=== PATIENT | female | born 1995 | race Caucasian/White ===

== ENCOUNTER 2021-03-30 18:33 | Observation (INO) | payer OTHER ==
[~2021-03-30] VITALS: Ht 165.1 cm; Wt 70.0 kg
--- NOTE | 2021-03-30 18:42 | NUR ---
PATIENT ARRIVES WITH DANIE FROM HOME WITH SI: WAS GOING TO OD ON LITHIUM. MEDICS BROUGHT LITHIUM AND ALL ARE PRESENT AND ACCOUNTED FOR. PATIENT CALLED EMS ON HER OWN AND CAME WILLINGLY.
--- NOTE | 2021-03-30 19:05 | NUR ---
RECEIVED REPORT FROM [facility] PT'S BELONGINGS REMOVED AND PLACED IN SECURE LOCKER. [facility] G[facility]
[2021-03-30 19:44] LABS: AMPHETAMINE SCREEN, URINE Negative (Negative); BARBITURATE SCREEN, URINE Negative (Negative); BENZODIAZEPINE SCREEN, URINE Negative (Negative); CANNABINOID SCREEN, URINE Positive (Negative); COCAINE SCREEN, URINE Negative (Negative); METHADONE SCREEN, URINE Negative (Negative); OPIATE SCREEN, URINE Negative (Negative)
[2021-03-30 19:55] LABS: BASOPHILS % (AUTO) 1 % (0-1); EOSINOPHILS % (AUTO) 0 % (1-7); LYMPHOCYTES % (AUTO) 15 % (22-44); MEAN CORPUSCULAR HEMOGLOBIN 29.8 pg (27.0-34.8); MEAN CORPUSCULAR HGB CONC 34.4 g/dL (32.4-35.8); MEAN PLATELET VOLUME 8.8 fL (7.4-10.4); MONOCYTES % (AUTO) 7 % (2-9); NEUTROPHILS % (AUTO) 77 % (42-75); PLATELET COUNT 312 x10^3/uL (130-400); RED BLOOD COUNT 5.09 x10^6/uL (3.82-5.3); RED CELL DISTRIBUTION WIDTH 13.2 % (9.6-15.2)
--- NOTE | 2021-03-30 19:56 | NUR ---
PT PLACED ON CONTINUOUS PULSE OX, SITTER IS AWARE THAT MONITOR IS IN ROOM.
[2021-03-30 20:04] LABS: ANION GAP 5 mmol/L (5-15); CALCIUM 8.6 mg/dL (8.5-10.1); CHLORIDE 109 mmol/L (98-107)
--- NOTE | 2021-03-30 20:05 | NUR ---
PT REMOVED FROM CONTINUOUS PULSE OX PER ERP. PT RESTING ON GURNEY, DENIES NEEDS AT THIS TIME, SITTER AT BEDSIDED, ROOM SECURED
[2021-03-30 20:10] LABS: ALANINE AMINOTRANSFERASE 16 U/L (12-78); ALKALINE PHOSPHATASE 55 U/L (45-117); CREATININE 0.86 mg/dL (0.55-1.02); SALICYLATE LEVEL < 1.7 mg/dL (2.8-20.0)
--- NOTE | 2021-03-30 20:40 | NUR ---
PT TRANSFERED FROM [facility] TO HOSPITAL BED. PT RESTING COMFORTABLY, DENIES NEEDS AT THIS TIME.
--- NOTE | 2021-03-30 21:30 | NUR ---
PT RESTING ON BED, DENIES NEEDS AT THIS TIME, SITTER AT BEDSIDE, ROOM SECURED
--- NOTE | 2021-03-30 22:15 | NUR ---
PT RESTING ON BED, DENIES NEEDS AT THIS TIME, SITTER AT BEDSIDE, ROOM SECURED
--- NOTE | 2021-03-30 23:17 | NUR ---
PT RESTING IN BED, DENIES NEEDS AT THIS TIME.
--- NOTE | 2021-03-30 23:18 | NUR ---
SITTER AT BEDSIDE, ROOM SECURED
--- NOTE | 2021-03-31 00:05 | NUR ---
PT RESTING ON BED, DENIES NEEDS AT THIS TIME, SITTER AT BEDSIDE, ROOM SECURED
--- NOTE | 2021-03-31 01:05 | NUR ---
PT RESTING ON BED, DENIES NEEDS AT THIS TIME, SITTER AT BEDSIDE, ROOM SECURED
--- NOTE | 2021-03-31 02:25 | NUR ---
PT RESTING ON BED, DENIES NEEDS AT THIS TIME, SITTER AT BEDSIDE, ROOM SECURED
--- NOTE | 2021-03-31 03:00 | NUR ---
PT RESTING IN BED, DENIES NEEDS AT THIS TIME, SITTER BY BEDSIDE, ROOM SECURED
--- NOTE | 2021-03-31 04:30 | NUR ---
PT RESTING IN BED, DENIES NEEDS AT THIS TIME, SITTER BY BEDSIDE, ROOM SECURED
--- NOTE | 2021-03-31 05:29 | NUR ---
TP RN: EARLIER THIS AM PACKET WAS FAXED TO [facility] WITH CONFIRMATION FAX RECEIVED.
--- NOTE | 2021-03-31 06:17 | NUR ---
PT RESTING ON BED, DENIES NEEDS AT THIS TIME, SITTER AT BEDSIDE, ROOM SECURED
--- NOTE | 2021-03-31 09:08 | NUR ---
PT BREAKFAST DELIVERED. VSS. SUICIDE AND PHYSICAL REASSESSMENT COMPLETED. PT ROOM SECURED. SITTER IN LINE OF SIGHT. ALL NEEDS MET AT THIS TIME.
--- NOTE | 2021-03-31 13:28 | NUR ---
REPORT FROM MIGUEL BAY, ASSUME CARE OF PT AT THIS TIME. PT RESTING QUIETLY IN ROOM, NAD. SITTER AT DOORWAY.
--- NOTE | 2021-03-31 14:30 | NUR ---
ED DIET TRAY PROVIDED. PT REQUESTING SHOWER, RV SERVICER TO ASSIST WITH SHOWER WHEN PT FINISHED WITH MEAL. SITTER AT DOORWAY. PT PLEASANT AND COOPERATIVE.
--- NOTE | 2021-03-31 14:54 | NUR ---
PT TO SHOWER WITH TANK BUILDER SUPERVISOR TO ASSIST.
--- NOTE | 2021-03-31 16:00 | NUR ---
PT SLEEPING, NAD. SITTER AT DOORWAY.
[2021-03-31] MEDS ORDERED: ARIPIPRAZOLE 10 MG TABLET PO SCH (17:00)
[2021-03-31] MEDS ORDERED: ARIPIPRAZOLE 5 MG TABLET ONE (17:23)
--- NOTE | 2021-03-31 17:29 | NUR ---
MEDICATION GIVEN PER EMAR. PT EATING DINNER TRAY. SITTER AT DOORWAY.
--- NOTE | 2021-03-31 19:13 | NUR ---
REPORT TO ALICE, TRANSFER OF CARE AT THIS TIME.
--- NOTE | 2021-03-31 19:15 | NUR ---
1ST CONTACT C PT. RESTING ON HOSPITAL BED, WATHCING TV, CALM & COOPERATIVE. FINISHED DINNER TRAY. SITTER OUTSIDE OF ROOM. WILL CTM. DENIES ANY NEEDS.
--- NOTE | 2021-03-31 20:00 | NUR ---
PT SITTING ON HOSPITAL BED, WATCHING TV IN NAD. CALM & COOPERATIVE. SITTER OUTSIDE OF ROOM. WILL CTM.
--- NOTE | 2021-03-31 21:00 | NUR ---
PT SITTING ON HOSPITAL BED, WATCHING TV IN NAD. CALM & COOPERATIVE. SITTER OUTSIDE OF ROOM. WILL CTM.
--- NOTE | 2021-03-31 22:07 | NUR ---
PT SITTING ON HOSPITAL BED, WATCHING TV IN NAD. CALM & COOPERATIVE. SITTER OUTSIDE OF ROOM. WILL CTM.
--- NOTE | 2021-03-31 23:00 | NUR ---
PT SITTING ON HOSPITAL BED, WATCHING TV IN NAD. GIVEN JUICE. DENIES ANY OTHER NEEDS. CALM & COOPERATIVE. SITTER OUTSIDE OF ROOM. WILL CTM.
--- NOTE | 2021-04-01 00:06 | NUR ---
PT RESTING ON HOSPITAL BED, NAD. RR EVEN, NON LABORED. SITTER OUTSIDE OF ROOM. WILL CTM.
--- NOTE | 2021-04-01 03:04 | NUR ---
RECEIVED REPORT ON PT, AND PT IS SLEEPING AT THIS TIME, WITH SITTER OUTSIDE OF ROOM, WITH EYES ON PT. NO ACUTE DISTRESS, PT REMAINS ON L2K. BREAKFAST TRAY ORDERED.
--- NOTE | 2021-04-01 04:01 | NUR ---
BREAK RN: PT SUPINE ON HOSPITAL BED SLEEPING. SAFETY PRECAUTIONS IN PLACE, SAFETY [place] DOWN, SITTER IN VIEW. NO NEEDS AT THIS TIME.
--- NOTE | 2021-04-01 05:10 | NUR ---
NO CHANGE IN PT STATUS. PT NOW AWAKE AND WATCHING TV. PT CALM AND COOPERATIVE, NO DISTRESS. SITTER OUTSIDE OF ROOM, AND EYES ON PT.
--- NOTE | 2021-04-01 06:54 | NUR ---
REPORT FROM [facility]. PT SLEEPING, SITTER PRESENT.
--- NOTE | 2021-04-01 08:58 | NUR ---
PT GIVEN MEAL TRAY. SITTER PRESENT
--- NOTE | 2021-04-01 10:57 | NUR ---
PT RESTING, WATCHING TV
--- NOTE | 2021-04-01 11:49 | NUR ---
PT AMBULATED TO BATHROOM
--- NOTE | 2021-04-01 13:00 | NUR ---
PT WATCHING TV. MEAL TRAY ORDERED
--- NOTE | 2021-04-01 13:45 | NUR ---
SEEN BY JUDSON
[2021-04-01] MEDS ORDERED: ARIPIPRAZOLE 10 MG TABLET PO ONE (14:00)
[2021-04-01] MEDS ORDERED: ARIPIPRAZOLE 5 MG TABLET ONE (14:05)
--- NOTE | 2021-04-01 14:10 | NUR ---
GIVEN MEAL TRAY, TOOTH BRUSH AND PASTE SUPPLIED. SITTER PRESENT
--- NOTE | 2021-04-01 15:30 | NUR ---
PT SLEEPING, SITTER PRESENT
--- NOTE | 2021-04-01 17:00 | NUR ---
PT SLEEPING, SITTER PRESENT
--- NOTE | 2021-04-01 18:46 | NUR ---
REPORT TO JHONY.
--- NOTE | 2021-04-01 18:50 | NUR ---
PT ASLEEP IN BED, ALL NEEDS IN REACH, CALL LIGHT IN REACH, NAD, GARAGE DOORS DOWN WITH SITTER IN LINE OF SIGHT
--- NOTE | 2021-04-01 20:44 | NUR ---
PT SITTING IN BED WATCHING TV, PT A/O4, ALL NEEDS IN REACH, CALL LIGHT IN REACH NAD AT THIS TIME, GARAGE DOORS DOWN WITH SITTER IN LINE OF SIGHT
--- NOTE | 2021-04-01 22:12 | NUR ---
PT ASLEEP IN BED, ALL NEEDS IN REACH, CALL LIGHT IN REACH, NAD, GARAGE DOORS DOWN WITH SITTER IN LINE OF SIGHT
--- NOTE | 2021-04-01 23:40 | NUR ---
PT LAYING IN BED, A/OX4, ALL NEEDS IN REACH, CALL LIGHT IN REACH, NAD AT THIS TIME, GARAGE DOORS DOWN, SITTER IN LINE OF SIGHT
--- NOTE | 2021-04-02 00:08 | NUR ---
PT ASLEEP IN BED, ALL NEEDS IN REACH, CALL LIGHT IN REACH, NAD, GARAGE DOORS DOWN WITH SITTER IN LINE OF SIGHT
--- NOTE | 2021-04-02 01:02 | NUR ---
PT ASLEEP IN BED, ALL NEEDS IN REACH, CALL LIGHT IN REACH, NAD AT THIS TIME, GARAGE DOORS DOWN WITH SITTER IN LINE OF SIGHT
--- NOTE | 2021-04-02 02:06 | NUR ---
PT ASLEEP IN BED, ALL NEEDS IN REACH, CALL LIGHT IN REACH, NAD AT THIS TIME, GARAGE DOORS DOWN WITH SITTER IN LINE OF SIGHT
--- NOTE | 2021-04-02 03:21 | NUR ---
PT ASLEEP IN BED, ALL NEEDS IN REACH, CALL LIGHT IN REACH, NAD AT THIS TIME, GARAGE DOORS DOWN WITH SITTER IN LINE OF SIGHT
--- NOTE | 2021-04-02 04:23 | NUR ---
PT ASLEEP IN BED, ALL NEEDS IN REACH, CALL LIGHT IN REACH, NAD AT THIS TIME, GARAGE DOORS DOWN WITH SITTER IN LINE OF SIGHT
--- NOTE | 2021-04-02 05:30 | NUR ---
PT ASLEEP IN BED, ALL NEEDS IN REACH, CALL LIGHT IN REACH, NAD AT THIS TIME, GARAGE DOORS DOWN WITH SITTER IN LINE OF SIGHT
--- NOTE | 2021-04-02 06:02 | NUR ---
PT ASLEEP IN BED, ALL NEEDS IN REACH, CALL LIGHT IN REACH, NAD AT THIS TIME, GARAGE DOORS DOWN WITH SITTER IN LINE OF SIGHT
--- NOTE | 2021-04-02 07:29 | NUR ---
PT RESTING ON SIDE ON HOSPITAL BED. ROOM SECURED WITH SITTER IN LINE OF SIGHT OUTSIDE ROOM. CRISTIAN.
--- NOTE | 2021-04-02 07:54 | NUR ---
THROUGHPUT RN: UPDATES FAXED TO [facility].
[2021-04-02] MEDS ORDERED: ARIPIPRAZOLE 5 MG TABLET ONE (08:27)
[2021-04-02] MEDS ORDERED: ARIPIPRAZOLE 10 MG TABLET PO SCH (09:00)
--- NOTE | 2021-04-02 10:11 | NUR ---
THROUGHPUT RN: SPOKE W/ [facility] WHO STATES PT IS #9 ON THE LIST.
[2021-04-02 19:15] VITALS: BP 111/61
--- NOTE | 2021-04-02 20:04 | NUR ---
RECEIEVED REPORT FROM MIGUEL BAY. PT RESTING IN BED. AWAITING BF TO PICK HER UP. VSS. NADN. VIRKTM
--- NOTE | 2021-04-02 20:17 | NUR ---
[facility] NUMBER [phone]
--- NOTE | 2021-04-02 20:18 | NUR ---
ATTEMPTED TO CALL . NO ANSWER
--- NOTE | 2021-04-02 20:53 | NUR ---
Patient/Caregiver given discharge instructions and they have confirmed that they understand the instructions. Patient ambulatory with steady gait. NAD, all questions answered appropriately, denies additional needs at this time. No personal belongings left in room after discharge.
== END 2021-04-02 21:22 | disposition home or self-care (01) ==
LOC: ED 19:03 → EDIP 22:01
PROVIDERS: ADMIT Emergency Medicine; ATTEND Emergency Medicine
DX: F31.30 Bipolar disorder, current episode depressed, mild or moderate severity, unspecified (principal); R45.851 Suicidal ideations; F12.90 Cannabis use, unspecified, uncomplicated; F41.0 Panic disorder [episodic paroxysmal anxiety]; Z91.410 Personal history of adult physical and sexual abuse; Z91.411 Personal history of adult psychological abuse; Z91.5 Personal history of self-harm; Z79.899 Other long term (current) drug therapy
CPT/HCPCS: 36415; 80053; 80299; 80307; 80320; 80329; 84703; 85025; 99284; G0378; G0480